=== PATIENT | male | born 1955 | race Caucasian/White ===

== ENCOUNTER 2021-04-28 14:39 | Outpatient (NON) | payer MEDICARE, SELFPAY ==
[2021-04-28 14:54] LABS: Hematocrit 45.8 % (40.0-54.0); Hemoglobin 15.1 g/dL (14.0-18.0); Mean Corpuscular Hemoglobin 29.6 pg (27.0-31.0); Mean Corpuscular Volume 89.8 fL (78.0-102.0); Mean Platelet Volume 10.2 fl (8.7-11.0); Platelet Count Result 175 K/mm3 (150-420); Red Cell Distribution Width 13.2 % (11.6-14.4); White Blood Count 4.8 K/mm3 (4.8-10.8)
[2021-04-28 15:50] LABS: Alanine Aminotransferase 49 U/L (16-63); Albumin Level 3.7 g/dL (3.4-5.0); Alkaline Phosphatase 60 U/L (46-116); Anion Gap 9 mmol/L (8-16); Aspartate Amino Transferase 19 U/L (15-37); Bilirubin,Total 0.3 mg/dL (0.00-1.00); Blood Urea Nitrogen 24 mg/dL (7-18); Calcium 8.6 mg/dL (8.5-10.1); Carbon Dioxide 30 mmol/L (21-32); Chloride 105 mmol/L (98-108); Cholesterol 138 mg/dL (0-200); Estimated Glomerular Filt Rate > 60; Glucose 102 mg/dL (70-99); HDL Direct 28 mg/dL (40-60); LDL Cholesterol Calculated 28 mg/dL (<130); Osmolality Calculated 302 mOsm/kg (285-295); Potassium 4.1 mmol/L (3.5-5.1); Sodium 144 mmol/L (136-145); Total Protein 6.5 g/dL (6.4-8.2); Triglycerides 409 mg/dL (0-150)
[2021-04-28 15:53] LABS: Prostate Specific Antigen < 0.1 ng/mL (< OR = 4.0)
[2021-04-28 16:24] LABS: LDL Cholesterol Direct 74 mg/dL (0-130)
== END 2021-04-28 14:40 | disposition home or self-care (01) ==
LOC: CHSLAB 14:43
PROVIDERS: Visit Provider Family Medicine
DX: N40.0 Benign prostatic hyperplasia without lower urinary tract symptoms (principal); Z12.5 Encounter for screening for malignant neoplasm of prostate; E78.5 Hyperlipidemia, unspecified; G40.909 Epilepsy, unspecified, not intractable, without status epilepticus
CPT/HCPCS: 36415; 80053; 80061; 83721; 84153; 85027; G0103

== ENCOUNTER 2022-03-11 09:34 | Outpatient (CLI) | payer MEDICARE, SELFPAY ==
[2022-03-11 09:50] LABS: Hematocrit 46.2 % (37.0-46.0); Hemoglobin 15.5 g/dL (12.4-15.3); Mean Corpuscular HGB Conc 33.5 g/dL (32.0-36.0); Mean Corpuscular Hemoglobin 29.8 pg (27.0-31.0); Mean Corpuscular Volume 88.8 fL (78.0-102.0); Mean Platelet Volume 9.9 fl (8.7-11.0); Platelet Count Result 182 K/mm3 (150-420); Red Cell Distribution Width 12.4 % (11.6-14.4); White Blood Count 3.8 K/mm3 (4.8-10.8)
[2022-03-11 10:17] LABS: Alanine Aminotransferase 30 U/L (16-63); Albumin Level 3.9 g/dL (3.4-5.0); Alkaline Phosphatase 54 U/L (46-116); Anion Gap 10 mmol/L (8-16); Aspartate Amino Transferase 18 U/L (15-37); Bilirubin,Total 0.7 mg/dL (0.00-1.00); Blood Urea Nitrogen 24 mg/dL (7-18); Calcium 8.7 mg/dL (8.5-10.1); Carbon Dioxide 26 mmol/L (21-32); Chloride 102 mmol/L (98-108); Cholesterol 132 mg/dL (0-200); Estimated Glomerular Filt Rate > 60; Glucose 102 mg/dL (70-99); HDL Direct 33 mg/dL (40-60); LDL Cholesterol Calculated 75 mg/dL (<130); Osmolality Calculated 290 mOsm/kg (285-295); Potassium 4.1 mmol/L (3.5-5.1); Sodium 138 mmol/L (136-145); Total Protein 7.1 g/dL (6.4-8.2); Triglycerides 122 mg/dL (0-150)
[2022-03-11 10:21] LABS: Prostate Specific Antigen < 0.1 ng/mL (< OR = 4.0)
== END 2022-03-11 09:35 | disposition home or self-care (01) ==
LOC: CHSLAB 09:37
PROVIDERS: PCP Family Medicine; Visit Provider Family Medicine
DX: K21.9 Gastro-esophageal reflux disease without esophagitis (principal); R35.1 Nocturia; Z85.46 Personal history of malignant neoplasm of prostate; E78.5 Hyperlipidemia, unspecified
CPT/HCPCS: 36415; 80053; 80061; 84153; 85027

== ENCOUNTER 2022-10-05 11:37 | Outpatient (CLI) | payer OTHER, SELFPAY ==
--- NOTE | ~2022-10-05 | XR_ITS ---
EXAMINATION: XR chest 2V DATE: 10/05/2022 15:14 INDICATION: Gastroesophageal reflux disease. Preop. TECHNIQUE: Frontal and lateral views of the chest were obtained. COMPARISON: Chest 2 views 10/03/2018 FINDINGS: The chest demonstrates clear lungs without pneumonia, pleural effusion, or pneumothorax. Th e heart size is normal. There are surgical clips near the gastroesophageal junction. 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 There are chronic compression fractures in mid thoracic spi ne. IMPRESSION: 1. No acute cardiopulmonary disease. Reviewed, dictated and finalized at location A.
--- NOTE | 2022-10-05 14:35 | ECG_ITS ---
Measurements Intervals [place] Rate: 68 P: -4 ME: 155 QRS: -15 QRSD: 107 T: 27 QT: 395 QTc: 420 Interpretive Statements SINUS RHYTHM BASELINE ARTIFACT LIMITS INTERPRETATION NONSPECIFIC ST T-WAVE ABNORMALITY ABNORMAL ECG COMPARED TO ECG 10/03/2018 10:23:44 NO SIGNIFICANT CHANGES Electronically Signed On 10-06-2022 13:39:38 CDT by Bar Fernando M.D.
[2022-10-05 15:58] LABS: Basophils Percent Auto 0.6 % (0.2-1.2); Eosinophils Absolute Auto 0.3 K/mm3 (0-0.3); Hematocrit 45.2 % (42.0-52.0); Hemoglobin 14.6 g/dL (14.0-18.0); Immature Granulocyte Absolute 0.01 K/mm3 (0.00-0.031); Immature Granulocyte Percent A 0.2 % (0-0.5); Lymphocytes Percent Auto 27.8 % (18.3-44.2); Mean Corpuscular HGB Conc 32.3 g/dl (32-36); Mean Corpuscular Hemoglobin 29.1 pg (26-34); Mean Corpuscular Volume 90.2 fl (80-100); Mean Platelet Volume 10.7 fl (7.4-10.4); Monocytes Absolute Auto 0.3 K/mm3 (0.1-0.6); Monocytes Percent Auto 6.4 % (2.6-8.5); Neutrophils Absolute Auto 2.8 K/mm3 (1.3-6.7); Platelet Count Result 171 k/mm3 (150-375); Red Blood Count 5.01 M/mm3 (4.6-6.20); Red Cell Distribution Width 13.2 % (11.5-14.5); White Blood Count 4.7 K/mm3 (4.5-10.0)
[2022-10-05 15:59] LABS: Appearance Urine Clear (Clear); Bilirubin Urine Negative (Negative); Blood Urine Negative (Negative); Color Urine Yellow (Yellow); Glucose Urine UA Negative (Negative); Ketones Urine Negative (Negative); Leukocyte Esterase Ur Negative LEU/UL (Negative); Nitrate Urine Negative (Negative); Protein Urine Negative (Negative); Specific Grav Ur 1.023 (1.001-1.035); pH Urine 6.5 (5.0-9.0)
[2022-10-05 16:17] LABS: Add Urine Microscopic? NO
[2022-10-05 16:20] LABS: Partial Thromboplastin Time 27.8 SECONDS (22.3-36.8)
[2022-10-05 16:24] LABS: Anion Gap 9 mmol/L (8-16); Blood Urea Nitrogen 23 mg/dL (9-20); Calcium 8.7 mg/dL (8.4-10.2); Carbon Dioxide 29 mmol/L (22-30); Chloride 104 mmol/L (98-107); Estimated Glomerular Filt Rate > 60; Glucose 83 mg/dL (65-110); Potassium 3.5 mmol/L (3.4-5.0); Sodium 142 mmol/L (137-145)
== END 2022-10-05 11:38 | disposition home or self-care (01) ==
PROVIDERS: PCP Family Medicine; Visit Provider Neurological Surgery
DX: M51.26 Other intervertebral disc displacement, lumbar region (principal); G95.9 Disease of spinal cord, unspecified; Z01.818 Encounter for other preprocedural examination
CPT/HCPCS: 36415; 71046; 80048; 81003; 85025; 85610; 85730; 86850; 86900; 86901; 93005

== ENCOUNTER 2022-11-09 02:22 | Day surgery (SDC) | payer OTHER, SELFPAY ==
--- NOTE | 2022-10-04 14:37 | PC.NURSE ---
Report to the Outpatient Waiting Room, entrance under the green pavilion located off [facility], at time __0600 on date _10/12/22 . Planned Procedure Time: ___30 . Time changes happen often and if your time is changed the preop area will call you the afternoon before. - You and your visitor will be asked to self-screen and do not enter if you have any COVID symptoms. - Only one visitor is requested with a max of two and NO children visitors are allowed at this time. - The patient visitor may be requested to leave or wait in car when not with patient due to distancing restrictions. - A mask is optional within the hospital at this time. Patients may have clear liquids (water, carbonated beverages, clear teas, apple juice) until 3 hours prior to surgery with a maximum of 20 ounces. - No food from midnight until time of surgery - Infants may have breast milk until 4 hours before surgery, infant formula 6 hours prior to surgery. - Children will be allowed to drink immediately following surgery. If applicable, please bring a bottle or sippy cup to assist with drinking. Juice, water, soda, and popsicles are readily available. For infants on formula, please bring formula the day of surgery. Pacifiers are allowed. Take the following medications with a SIP of water the morning of surgery: ____pregabalin DO NOT STOP ANY OF YOUR OTHER PRESCRIPTION MEDICATIONS PRIOR TO SURGERY ?EXCEPT THE FOLLOWING Medications to discontinue per physician ___ALL VITAMINS AND SUPPLEMENTS 3 DAYS PRE OP.LAST DOSE 10/08/[address] MCKEON Please no make-up, nail zimbabwean, hairspray, perfume, deodorant, or body powder the day of surgery. No jewelry (including any body piercings) or valuables the day of surgery, leave them at home. Please take a shower or bath the night before, or the morning of, surgery with an antibacterial soap. Wear comfortable, loose fitting clothing. Children are encouraged to wear pajamas. - Jewelry must be removed prior to entering the operating room. Rings and piercings that are not removed may be cut off. - The hospital will not accept responsibility for valuables. - Please leave all valuables, including medications, at home the day of surgery. If you are going home after surgery, a licensed hook up driver must drive you home. - NO public transportation without another adult if you receive anesthesia. - We recommend that an adult stay with you for 24 hours following discharge. - We also recommend that you do not drive, make important decision, drink alcoholic beverages, or take any drugs that were not prescribed by your health care provider for at least 24 hours after your discharge time. For Pediatric surgeries, we recommend two adults accompany the child home. Follow any additional instructions given to you from your surgeon. If you or anyone in your household have experienced Covid symptoms in the past week, please notify your surgeon or the nurse liaison at the phone number below for possible testing. Telephone instructions given to __PATIENT and asked if any additional questions and then verbalized understanding. Patient advised to call surgeon office or pre surgery nurse liaison [phone] if any additional questions.
[2022-10-04 14:49] VITALS: BMI 29.8
--- NOTE | 2022-11-02 08:43 | PC.NURSE ---
Addendum entered by Genet Alanis RN 11/02/22 08:53: PATIENT RESCHEDULED FOR INSURANCES REASONS. PT GIVEN NEW TIME/DATE, HE RELAYS UNDERSTANDING. NO CHANGE IN PMH. ALL MEDS AND ALLERGIES CONFIRMED. ALL PRE-OP INSTRUCTIONS REVIEWED, HE RELAYS UNDERSTANDING. Original Note: Report to the Outpatient Waiting Room, entrance under the green pavilion located off [facility], at time __8:30am on date ___11/09/22____. Planned Procedure Time: _10:30am . Time changes happen often and if your time is changed the preop area will call you the afternoon before. - You and your visitor will be asked to self-screen and do not enter if you have any COVID symptoms. - A mask is optional within the hospital at this time. Patients may have clear liquids (water, carbonated beverages, clear teas, apple juice) until 3 hours prior to surgery with a maximum of 20 ounces. - No food from midnight until time of surgery Take the following medications with a SIP of water the morning of surgery: ____PREGABALIN DO NOT STOP ANY OF YOUR OTHER PRESCRIPTION MEDICATIONS PRIOR TO SURGERY ?EXCEPT THE FOLLOWING Medications to discontinue per physician ___HOLD ALL VITAMINS/SUPPLEMENTS 3 DAYS PRE-OP PER ANESTHESIA- LAST DOSE 11/05/22. HOLD MELOXICAM PER DR MCKEON- PATIENT CHECKING WITH OFFICE. Please no make-up, nail bahraini, hairspray, perfume, deodorant, or body powder the day of surgery. No jewelry (including any body piercings) or valuables the day of surgery, leave them at home. Please take a shower or bath the night before, or the morning of, surgery with an antibacterial soap. Wear comfortable, loose fitting clothing. Children are encouraged to wear pajamas. - Jewelry must be removed prior to entering the operating room. Rings and piercings that are not removed may be cut off. - The hospital will not accept responsibility for valuables. - Please leave all valuables, including medications, at home the day of surgery. If you are going home after surgery, a licensed yard truck driver must drive you home. - NO public transportation without another adult if you receive anesthesia. - We recommend that an adult stay with you for 24 hours following discharge. - We also recommend that you do not drive, make important decision, drink alcoholic beverages, or take any drugs that were not prescribed by your health care provider for at least 24 hours after your discharge time. Follow any additional instructions given to you from your surgeon. If you or anyone in your household have experienced Covid symptoms in the past week, please notify your surgeon or the nurse liaison at the phone number below for possible testing. Telephone instructions given to ___PATIENT and asked if any additional questions and then verbalized understanding. Patient advised to call surgeon office or pre surgery nurse liaison [phone] if any additional questions.
--- NOTE | 2022-11-08 14:33 | WPDANESEPPF ---
Anes - Initial Pre Proc Eval Procedure: Operation Date: 11/09/22 10:30 Proposed Procedures p Left L4-5 Microdiscectomy - Brian Saleh MD Date/Time: 11/08/22 14:33 Surgeon: Brian Saleh MD Pre Op Diagnosis: left L4-5 herniated disc Patient Data Age: 67 Gender: M Height: 1.83 m Weight: 99.8 kg Allergies Allergy/AdvReac Type Severity Reaction Status Date / Time duloxetine [From Cymbalta] AdvReac Confusion Verified 11/09/22 09:18 Home Medications Medication Instructions Recorded Confirmed Type meloxicam 15 mg tablet 15 mg PO DAILY 08/16/19 11/02/22 History acetaminophen 500 mg tablet 500 mg PO Q6H PRN Pain 08/26/20 11/02/22 History (Tylenol Extra Strength) atorvastatin 40 mg tablet See Rx Instructions .Route 03/11/22 11/02/22 Rx .COMPLEX #90 tabs cyclobenzaprine 10 mg tablet 10 mg PO .HS PRN muscle spasm #30 03/11/22 11/02/22 Rx tabs omeprazole 10 mg capsule,delayed See Rx Instructions .Route 03/11/22 11/02/22 Rx release .COMPLEX #90 caps hyoscyamine sulfate 0.125 mg tablet See Rx Instructions .Route 08/18/22 11/02/22 Rx .COMPLEX #360 tabs pregabalin 50 mg capsule 50 mg PO BID 10/04/22 11/09/22 History turmeric 400 mg capsule 250 mg PO DAILY 10/04/22 11/02/22 History vitamin C 90 mg-zinc gluconate 15 1 miroslava PO DAILY 10/04/22 11/02/22 History mg-herbal complex no. 325 lozenges (Elderberry Zinc Vit C) ECG: Date of Service: 10/05/22 Procedure(s): CA 12 lead EKG Accession Number(s): [id number] cc: ~ ? Measurements Intervals? [place]? Rate: ? 68 ? P:? -4 [place]: ? 155? QRS:? -15 QRSD: ? 107? T:? 27 QT: ? 395? QTc:? 420? Interpretive Statements SINUS RHYTHM BASELINE ARTIFACT LIMITS INTERPRETATION NONSPECIFIC ST T-WAVE ABNORMALITY ABNORMAL ECG COMPARED TO ECG 10/03/2018 10:23:44 NO SIGNIFICANT CHANGES Electronically Signed On 10-06-2022 13:39:38 CDT by Bar Fernando M.D. Patient hx anesthesia problems: none Family hx anesthesia problems: none Results Review: All pre-operative results and documents have been reviewed as part of the pre-operative evaluation. [facility] Past Medical History Medical History (Updated 11/08/22 @ 14:34 by Ata Dubose MD) Chronic back pain greater than 3 months duration GERD (gastroesophageal reflux disease) History of prostate cancer Prostatectomy 10-13-18 Hyperlipidemia Lumbar disc herniation Lumbar myelopathy MDD (major depressive disorder) Overweight Paraplegia Seizure disorder Surgical History Surgical History History of back surgery 1976 History of neck surgery C6 & C7 in 1976 History of rotator cuff surgery Left shoulder Family History Family History Mother Hypertension Diabetes mellitus Lung cancer Social History Social History Smoking status: Never smoker Living arrangements: with family Additional living arrangements comments: . 2 adult sons. 4 granchildren. Additional occupation/education comments: Currently on [employer] Disability due to accident at work. Worked for [employer]. Spiritual care concerns: No Anes - Eval Final PreProcedure Day of Procedure 11/08/22 14:33 Patient weight: obese Heart: regular rate and rhythm Lungs: clear to auscultation and normal air movement Airway: Mallampati scale class II Neurological: alert and oriented Last oral intake: >/= 8 hours ASA classification: III Emergent: no Anesthetic plan: proceed Anesthesia type and monitoring: general ETT Results Review: All pre-operative results and documents
[2022-11-09] VITALS (8 sets, daily range): BP systolic 103–142; BP diastolic 63–95; PULSE 54–75; RESP 12–16; TEMP 36.1–36.3; O2SAT 97–100
--- NOTE | ~2022-11-09 | XR_ITS ---
EXAMINATION: XR fluoroscopy no charge DATE: 11/09/2022 11:15 CDT INDICATION: L4-5 MICRODISCECTOMY . TECHNIQUE: 2 fluoroscopic images of the lateral lumbar spine were obtained during L4-5 microdiscectom y performed by the surgeon. I was not present in the operating room. Fluoroscopy exposure time was 1. 5 seconds. Air Kerma 1.2492 mGy. DAP 0.0248 mGym2. COMPARISON: None FINDINGS: Instrument localization of the L4-5 disc space, followed by localization of the superior aspect of th e posterior L5 vertebral body cortex. Skin retractors overlie the posterior soft tissues. No unexpect ed radiopaque foreign body. IMPRESSION: Fluoroscopic documentation of L4-5 microdiscectomy. Please refer to the operative note for complete p rocedural details . Reviewed, dictated and finalized at location K. IMPRESSION: Fluoroscopic documentation of L4-5 microdiscectomy. Please refer to the operati ve note for complete procedural details .
[2022-11-09] MEDS: LACTATED RINGERS 1,000 ML 30 ML IV CONT ×2 (09:17→11:57)
--- NOTE | 2022-11-09 10:22 | PM.IMHP ---
H&P: HPI History of Present Illness Date/Time: 11/09/22 10:22 Chief Complaint: Back and left leg pain Narrative: Mr. So is a 67-year-old gentleman with back and left lower extremity discomfort related to foraminal stenosis on the left L3-4 related to a disc herniation and spondylosis who presents for decompression. He has not changed appreciably since we last saw him. He does not have specific muscle group weakness or dermatomal numbness. He is not having any bowel or bladder difficulty. Review of Systems Review of Systems: Patient denies shortness of breath, cough, fever, chills, nausea, vomiting, weight loss, weight gain, chest pain, dysuria. He has back and leg pain as above. His review of systems is otherwise negative on 12 systems except as noted elsewhere. [facility] Past Medical History Medical History Chronic back pain greater than 3 months duration GERD (gastroesophageal reflux disease) History of prostate cancer Prostatectomy 10-13-18 Hyperlipidemia Lumbar disc herniation Lumbar myelopathy MDD (major depressive disorder) Overweight Paraplegia Seizure disorder Surgical History Surgical History History of back surgery 1976 History of neck surgery C6 & C7 in 1976 History of rotator cuff surgery Left shoulder Family History Family History Mother Hypertension Diabetes mellitus Lung cancer Social History Social History Smoking status: Never smoker Living arrangements: with family Additional living arrangements comments: . 2 adult sons. 4 granchildren. Additional occupation/education comments: Currently on Long-Term Disability due to accident at work. Worked for [employer]. Spiritual care concerns: No Meds Home Medications and Allergies Home Medications Medication Instructions Recorded Confirmed Type meloxicam 15 mg tablet 15 mg PO DAILY 08/16/19 11/02/22 History acetaminophen 500 mg tablet 500 mg PO Q6H PRN Pain 08/26/20 11/02/22 History (Tylenol Extra Strength) atorvastatin 40 mg tablet See Rx Instructions .Route 03/11/22 11/02/22 Rx .COMPLEX #90 tabs cyclobenzaprine 10 mg tablet 10 mg PO .HS PRN muscle spasm #30 03/11/22 11/02/22 Rx tabs omeprazole 10 mg capsule,delayed See Rx Instructions .Route 03/11/22 11/02/22 Rx release .COMPLEX #90 caps hyoscyamine sulfate 0.125 mg tablet See Rx Instructions .Route 08/18/22 11/02/22 Rx .COMPLEX #360 tabs pregabalin 50 mg capsule 50 mg PO BID 10/04/22 11/09/22 History turmeric 400 mg capsule 250 mg PO DAILY 10/04/22 11/02/22 History vitamin C 90 mg-zinc gluconate 15 1 miroslava PO DAILY 10/04/22 11/02/22 History mg-herbal complex no. 325 lozenges (Elderberry Zinc Vit C) Allergies Allergy/AdvReac Type Severity Reaction Status Date / Time duloxetine [From Cymbalta] AdvReac Confusion Verified 11/09/22 09:18 Vital Signs Vital Signs - 24 hr 11/09/22 09:12 Temperature 97.4 F L Pulse Rate 75 Respiratory Rate 14 Blood Pressure 113/95 H Pulse Oximetry 97 Oxygen Delivery Room Air Exam Narrative: Strength is 5/5 in all muscle groups of the bilateral lower extremities. Sensation is intact to light touch throughout the lower extremities. Breathing is nonlabored Regular rate and rhythm Assessment and Plan Assessment and plan (1) Lumbar disc herniation: Code(s): M51.26 - Other intervertebral disc displacement, lumbar region Status: Acute Assessment and Plan: Mr. So is a 67-year-old gentleman with back and leg pain related to a foraminal disc herniation L3-4 who presents for left-sided L3-4 far lateral foraminotomy and microdiskectomy. I described to him again that operation, its risks, potential benefits, the operative and postoperative
--- NOTE | 2022-11-09 10:24 | WPDHPUPDATE1 ---
History and Physical Update Update Date/Time: 11/09/22 10:24 History and Physical has been reviewed, including an updated exam of the patient. There are NO changes in the patient's condition. Risks, benefits, and alternatives have been discussed and questions answered. Patient agrees to proceed with procedure.
--- NOTE | 2022-11-09 10:40 | P.HP_ITS ---
H&P: HPI History of Present Illness Date/Time: 11/09/22 10:40 Chief Complaint: this was an aborted document. [facility] Past Medical History Medical History Chronic back pain greater than 3 months duration GERD (gastroesophageal reflux disease) History of prostate cancer Prostatectomy 10-13-18 Hyperlipidemia Lumbar disc herniation Lumbar myelopathy MDD (major depressive disorder) Overweight Paraplegia Seizure disorder Surgical History Surgical History (Updated 12/24/22 @ 11:05 by Saundra Maldonado MA) History of back surgery 1976 History of neck surgery C6 & C7 in 1976 History of rotator cuff surgery Left shoulder Status post lumbar discectomy Family History Family History Mother Hypertension Diabetes mellitus Lung cancer Social History Social History (Updated 01/03/23 @ 11:13 by Saundra Maldonado MA) Social History: Wilder feels very confident filling out medical forms. Smoking status: Never smoker Lack of Transportation: No Lack of Food: Never True Current Housing: I Have Housing Concerned About Future Housing: No Difficulty Paying Gas/Electric Bills: No Difficulty Paying for Meds: No Currently Unemployed: No Education: Associate Degree Difficulty w/ Childcare or Family Care: No Living arrangements: with family Additional living arrangements comments: . 2 adult sons. 4 granchildren. 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 Worked for [employer]. Spiritual care concerns: No Meds Home Medications and Allergies Home Medications Medication Instructions Recorded Confirmed Type meloxicam 15 mg tablet 15 mg PO DAILY 08/16/19 11/02/22 History acetaminophen 500 mg tablet 500 mg PO Q6H PRN Pain 08/26/20 11/02/22 History (Tylenol Extra Strength) omeprazole 10 mg capsule,delayed See Rx Instructions .Route 03/11/22 11/02/22 Rx release .COMPLEX #90 caps hyoscyamine sulfate 0.125 mg tablet See Rx Instructions .Route 08/18/22 11/02/22 Rx .COMPLEX #360 tabs vitamin C 90 mg-zinc gluconate 15 1 miroslava PO DAILY 10/04/22 11/02/22 History mg-herbal complex no. 325 lozenges (Elderberry Zinc Vit C) atorvastatin 40 mg tablet See Rx Instructions .Route 02/28/23 Rx .COMPLEX #30 tabs atorvastatin 40 mg tablet See Rx Instructions .Route 03/01/23 03/01/23 Rx .COMPLEX #90 tabs semaglutide (weight loss) 0.25 0.25 mg (0.5 mL) subcut WEEKLY #2 03/01/23 03/01/23 Rx mg/0.5 mL subcutaneous pen mL injector (CindyKublaxghanshyam) tramadol 50 mg tablet 50 mg PO Q6H PRN 03/01/23 History Allergies Allergy/AdvReac Type Severity Reaction Status Date / Time duloxetine [From Cymbalta] AdvReac Confusion Verified 03/01/23 07:18 Vital Signs Vital Signs - 24 hr 11/09/22 09:12 Temperature 97.4 F L Pulse Rate 75 Respiratory Rate 14 Blood Pressure 113/95 H Pulse Oximetry 97 Oxygen Delivery Room Air
[2022-11-09] MEDS: ceFAZolin 2 GM/D5W 50 ML 2 GM/50 ML BAG IVPB (10:41)
--- NOTE | 2022-11-09 10:41 | WPDNEUROSGPN ---
Subjective Date/time seen: 11/09/22 10:41 Interval history: This note is being written to correct the history and physical. The operation is being performed at L4-5 and is an L4-5 microdiskectomy on the left. Objective Data Vital Signs Vital Signs: Vital Signs - 24 hr 11/09/22 09:12 Temperature 97.4 F L Pulse Rate 75 Respiratory Rate 14 Blood Pressure 113/95 H Pulse Oximetry 97 Oxygen Delivery Room Air Meds/Results Medications: Active Medications Generic Name Dose Route Start Last Admin Trade Name Freq PRN Reason Stop Dose Admin Fentanyl Citrate 25 mcg 11/08/22 14:33 Fentanyl Citrate Inj (*Crx) 100 Mcg/2 Ml Vial IV PUSH Q2M PRN Pain Lactated Ringer's 1,000 mls @ 30 mls/hr 11/08/22 14:35 Lr - Lactated Ringers Iv IV CONT .Q24H SAM Lactated Ringer's 1,000 mls @ 30 mls/hr 11/08/22 14:35 11/09/22 09:17 Lr - Lactated Ringers Iv IV CONT 30 mls/hr .Q24H SAM Administration Ondansetron HCl 4 mg 11/08/22 14:33 Ondansetron Inj 4 Mg/2 Ml Vial IV PUSH ONCE PRN Nausea Oxycodone HCl 5 mg 11/08/22 14:33 Oxycodone Hcl (*Crx) 5 Mg Tab Ir PO ONCE PRN Pain
[2022-11-09] MEDS: LIDO 1%/EPINEPHRINE 1:100,000 50 ML VIAL INFILTRATE (11:23)
--- NOTE | 2022-11-09 11:50 | W.PM.PROC2 ---
Procedure Note - Detailed Date of Procedure 11/09/22 Pre-op Diagnosis left L4-5 herniated disc Post-op Diagnosis Same Procedure Performed Left L4-5 microdiskectomy Surgeon Brian Saleh MD [employer] Imtiaz Anesthesia General Description of Procedure The patient was brought to the operating room in the supine position, was sedated, intubated placed under general anesthesia in routine fashion. He was then turned into the prone position on a Ebenezer frame. The area of operation on his back was examined, incision, prepped and draped in routine sterile fashion. Incision was marked over the L4-L5 spinous processes in the midline. This area was injected with 0.5% lidocaine with [id number] epinephrine. Intravenous antibiotics given prior to incision. Incision was made with a 10 blade scalpel down to the lumbodorsal fascia. A subperiosteal dissection of the muscle soft tissue away from spinous process and lamina at L4-5 on the left was performed with a subperiosteal elevator and Bovie cautery. A verifying x-rays obtained to verify the level of operation. At the L4-5 level Midas-Carl drill was used to perform a hemilaminectomy and medial facetectomy. Under microscopy the yellow ligament lifted and piecemeal using Kerrison punches. The thecal sac was retracted medially. The ligament was entered using an 11 blade scalpel. An Diamante curette and curved curette were used to push free and removed fragments of disc which were removed with a Frey rongeur. The nerve root was followed course foramen. A limited bony foraminotomy was performed using a Midas Carl drill, curved curette and Kerrison punch. These maneuvers were performed until the dental instrument could be placed in the lateral epidural space above and below the nerve root to confirm microdecompression. The wound was then copiously irrigated with bacitracin irrigation all bleeding stopped with bipolar and Bovie cautery the thrombin powder. The wound was then closed in layered fashion with 2-0 Vicryl interrupted sutures in the lumbodorsal fascia and Abe's layer. 3-0 Vicryl buried interrupted sutures were placed in the dermis and the skin was closed with a running 4-0 Monocryl subcuticular stitch and dressed with Dermabond. The patient was allowed to wake up in the operating room was taken to the recovery room in stable condition. There were no immediate complications of this operation. All counts were reported correct in the case. Blood loss was 25 cc. The patient is neurologically at his baseline postoperatively. CPT code: 71680 Estimated Blood Loss 25 IV Fluids 1,000 Complications None Condition Stable Disposition PACU [facility] Billing Surgery - Charge Forward: Surgery Billing
[2022-11-09] MEDS: oxyCODONE HCL (*CRX) 5 MG TAB IR PO (13:05)
== END 2022-11-09 13:53 | disposition home or self-care (01) ==
PROVIDERS: PCP Family Medicine; Visit Provider Neurological Surgery
PROC: (CPT 63030; principal; 2022-11-09 10:30)
DX: M51.26 Other intervertebral disc displacement, lumbar region (principal); E78.5 Hyperlipidemia, unspecified; F32.9 Major depressive disorder, single episode, unspecified; K21.9 Gastro-esophageal reflux disease without esophagitis; Z85.46 Personal history of malignant neoplasm of prostate; E66.9 Obesity, unspecified; Z68.29 Body mass index [BMI] 29.0-29.9, adult
CPT/HCPCS: 63030; 36415; 86850; 86900; 86901; 99199; A9270; J0690; J1100; J2405; J2704; J2710; J7120

== ENCOUNTER 2022-12-27 10:54 | Outpatient (CLI) | payer OTHER, MEDICARE, SELFPAY ==
--- NOTE | ~2022-12-27 | XR_ITS ---
EXAMINATION: XR lumbar spine 2-3V DATE: 12/27/2022 11:16 INDICATION: Low back pain TECHNIQUE: Anteroposterior and lateral views of the lumbar spine, and cone-down lateral view of the l umbosacral junction were obtained. COMPARISON: None. FINDINGS: There are 10 degrees of lumbar dextrocurvature. There are 2 mm retrolisthesis of L3 on L4. The vertebral body heights are maintained. There is moderate loss of intervertebral disc space height at L2-3 and L3-4. There is no fracture. Small degenerative osteophytes project from the anterior end plates of multiple vertebral bodies. There is severe facet joint osteoarthritis of the lower lumbar s pine. IMPRESSION: 1. Moderate lumbar spondylosis without acute findings. Reviewed, dictated and finalized at location []
== END 2022-12-27 10:55 | disposition home or self-care (01) ==
LOC: ANHIMG 11:01
PROVIDERS: PCP Family Medicine; Visit Provider Neurological Surgery
DX: Z98.890 Other specified postprocedural states (principal); M47.896 Other spondylosis, lumbar region
CPT/HCPCS: 72100

== ENCOUNTER 2023-03-01 08:39 | Outpatient (CLI) | payer MEDICARE, SELFPAY ==
[2023-03-01 09:06] LABS: Hemoglobin A1C 5.4 % (<5.7)
[2023-03-01 09:28] LABS: Cholesterol 236 mg/dL (0-200); HDL Direct 32 mg/dL (40-60); LDL Cholesterol Calculated 172 mg/dL (<130); Triglycerides 158 mg/dL (0-150)
== END 2023-03-01 08:40 | disposition home or self-care (01) ==
LOC: CHSLAB 08:41
PROVIDERS: PCP Family Medicine; Visit Provider Family Medicine
DX: E78.5 Hyperlipidemia, unspecified (principal); E11.9 Type 2 diabetes mellitus without complications
CPT/HCPCS: 36415; 80061; 83036

== ENCOUNTER 2024-01-26 10:28 | Outpatient (CLI) | payer MEDICARE, SELFPAY ==
[2024-01-26 10:40] LABS: Basophils Absolute Auto 0.03 K/mm3 (0.00-0.10); Basophils Percent Auto 0.7 % (0.0-1.0); Eosinophils Absolute Auto 0.18 K/mm3 (0.02-0.50); Eosinophils Percent Auto 4.2 % (1.0-6.0); Hematocrit 44.6 % (37.0-46.0); Hemoglobin 15.1 g/dL (12.4-15.3); Immature Granulocyte Absolute 0.01 K/mm3 (0.00-0.00); Immature Granulocyte Percent A 0.2 % (0.0-0.0); Lymphocytes Absolute Auto 1.39 K/mm3 (1.10-4.50); Lymphocytes Percent Auto 32.3 % (18.0-42.0); Mean Corpuscular HGB Conc 33.9 g/dL (32-36); Mean Corpuscular Hemoglobin 29.8 pg (27.0-31.0); Mean Corpuscular Volume 88.1 fL (78.0-102.0); Mean Platelet Volume 9.8 fl (8.7-11.0); Monocytes Absolute Auto 0.34 K/mm3 (0.10-0.90); Monocytes Percent Auto 7.9 % (2.0-11.0); Neutrophils Absolute Auto 2.35 K/mm3 (1.70-7.20); Neutrophils Percent Auto 54.7 % (50.0-70.0); Platelet Count Result 179 K/mm3 (150-420); Red Blood Count 5.06 M/mm3 (4.70-6.10); Red Cell Distribution Width 12.6 % (11.6-14.4); White Blood Count 4.3 K/mm3 (4.8-10.8)
[2024-01-26 12:35] LABS: Alanine Aminotransferase 35 U/L (16-63); Albumin Level 3.8 g/dL (3.4-5.0); Alkaline Phosphatase 56 U/L (46-116); Anion Gap 7 mmol/L (4-12); Aspartate Amino Transferase 19 U/L (15-37); Bilirubin,Total 0.7 mg/dL (0.00-1.00); Blood Urea Nitrogen 17 mg/dL (7-18); Calcium 8.9 mg/dL (8.5-10.1); Carbon Dioxide 28 mmol/L (21-32); Chloride 103 mmol/L (98-108); Estimated Glomerular Filt Rate > 60; Folic Acid 9.6 ng/mL (8.6->20); Glucose 93 mg/dL (70-99); Osmolality Calculated 287 mOsm/kg (285-295); Potassium 4.6 mmol/L (3.5-5.1); Sodium 138 mmol/L (136-145); Thyroid Stimulating Hormone Reflex 0.94 u/IU/mL (0.36-3.74); Total Protein 6.6 g/dL (6.4-8.2); Vitamin B12 366 pg/mL (193-986)
== END 2024-01-26 10:29 | disposition home or self-care (01) ==
LOC: CHSLAB 10:30
PROVIDERS: PCP Family Medicine; Visit Provider Family Medicine
DX: E53.8 Deficiency of other specified B group vitamins (principal); E03.9 Hypothyroidism, unspecified; R53.83 Other fatigue
CPT/HCPCS: 36415; 80053; 82607; 82746; 84443; 85025

== ENCOUNTER 2024-01-27 10:54 | Outpatient (CLI) | payer MEDICARE, SELFPAY ==
--- NOTE | 2024-02-01 21:41 | WPDPFTINT ---
PFT Procedure Performed PFT Procedure Performed Spirometry with Pre/Post Bronchodilator Plethysmography (Lung Vol) Diffusing Cap (DLCO) Flow Vol Loop PFT Interpretation DOS: 01/27/2020 for REQUESTING: Dr. Segundo Nye REASON FOR TESTING: dyspnea PULMONARY FUNCTION TESTS Spirometry: The pre-bronchodilator FEV1 is 2.80 L, 80%. The pre-bronchodilator FVC is 3.91 L, 87%. The FEV1/FVC ratio is 72%. After bronchodilator, the FEV1 is 2.94 L, 84%, +5%. The FVC is 3.85 L, 86%, -2%. The FEV1/FVC ratio is 77%. Lung volumes: The total lung capacity is 5.62 L, 80%. The residual volume is 1.71 L, 65%. The RV/TLC is 30%. Diffusion: DLCO is 24.8, 97%. The DLCO/VA is 4.43, 121%. Flow volume loop: The flow volume loop is normal. IMPRESSION: Normal spirometry without response to bronchodilator, normal lung volumes and normal diffusion. Lack of response to bronchodilator should not preclude use if clinically indicated. Tara Steele MD
== END 2024-01-27 10:55 | disposition home or self-care (01) ==
LOC: CHSCARD 10:55
PROVIDERS: PCP Family Medicine; Visit Provider Family Medicine
DX: R06.00 Dyspnea, unspecified (principal); R94.2 Abnormal results of pulmonary function studies
CPT/HCPCS: 94060; 94726; 94729

== ENCOUNTER 2024-02-21 11:23 | Outpatient (NON) | payer MEDICARE, SELFPAY | END 2024-02-21 11:24 | disposition home or self-care (01) | LOC: CHSLAB 11:24 | PROVIDERS: Visit Provider Family Medicine | DX: R35.0 Frequency of micturition (principal) | CPT/HCPCS: 87077; 87086; 87088; 87186 ==

== ENCOUNTER 2024-03-15 14:45 | Outpatient (CLI) | payer MEDICARE, SELFPAY ==
--- NOTE | 2024-03-15 14:49 | ECHO_ITS ---
Patient Info Name: Wilder So Age: 68 years : 1955 Gender: Male Ht: 72 in Wt: 220 lbs BSA: 2.27 m2 HR: 60 bpm BP: 145 / 78 mmHg Heart Rhythm: Sinus Rhythm Exam Date: 03/15/2024 2:52 PM Exam Location: Echo Lab Patient Status: Outpatient Admit Date: 03/15/2024 Staff Ordering Physician: Segundo Nye DO [employer] Agent: Sujatha Winslow RDCS Attending Provider: Segundo Nye DO Referring Physician: Parris ADEN; Exam Type: CA echo doppler color flow Study Info Indications - heart failure, unsp Complete two-dimensional, color flow and Doppler transthoracic echocardiogram is performed. Summary 1. Complete two-dimensional, color flow and Doppler transthoracic echocardiogram is performed. 2. Left ventricular chamber dimension is normal. 3. Left ventricular systolic function is normal, estimated at 60-65%. 4. The left ventricular diastolic function is grade I diastolic dysfunction. 5. E/e' 9 is minimally elevated. 6. There is trace tricuspid valve regurgitation. 7. No pulmonary hypertension, estimated pulmonary arterial systolic pressure is 30 mmHg. Left Ventricle E/e' 9 is minimally elevated. Left ventricular chamber dimension is normal. Left ventricular systolic function is normal, estimated at 60-65%. The left ventricular diastolic function is grade I diastolic dysfunction. Right Ventricle Right ventricular systolic function is normal and with normal TAPSE 2.9 cm. Right ventricular chamber dimension is normal. Left Atria Left atrial chamber dimension is normal. Right Atria Right atrial chamber dimension is normal. Aortic Valve The aortic valve is trileaflet. There is no aortic valve stenosis. There is no aortic valve regurgitation. Pulmonic Valve There is no pulmonic regurgitation. Mitral Valve There is no mitral valve stenosis. There is no mitral valve regurgitation. Tricuspid Valve There is trace tricuspid valve regurgitation. No pulmonary hypertension, estimated pulmonary arterial systolic pressure is 30 mmHg. Pericardium/Pleural There is no pericardial effusion. Inferior Vena Cava Normal inferior vena cava with >50% collapse upon inspiration consistent with normal right atrial pressure, 5 mmHg. Aorta The aortic root size at the sinus of Valsalva is normal. Left Ventricular Outflow Tract Name Value Normal LVOT 2D LVOT Diameter 1.8 cm LVOT Doppler LVOT Peak Velocity 82 cm/s LVOT Peak Gradient 3 mmHg LVOT Mean Gradient 2 mmHg LVOT VTI 19 cm LVOT VTI/AV VTI Ratio 0.6 LVOT Stroke Volume 48 ml Pulmonic Valve Name Value Normal PV Doppler PV Peak Velocity 131 cm/s PV Peak Gradient 7 mmHg Mitral Valve Name
== END 2024-03-15 14:46 | disposition home or self-care (01) ==
PROVIDERS: PCP Family Medicine; Visit Provider Family Medicine
DX: I50.9 Heart failure, unspecified (principal)
CPT/HCPCS: 93306

== ENCOUNTER 2025-02-26 10:41 | Outpatient (CLI) | payer MEDICARE, SELFPAY ==
[2025-02-26 11:02] LABS: Hematocrit 45.5 % (37.0-46.0); Hemoglobin 15.1 g/dL (12.4-15.3); Immature Granulocyte Percent A 0.3 % (0.0-0.0); Lymphocytes Absolute Auto 1.21 K/mm3 (1.10-4.50); Mean Corpuscular HGB Conc 33.2 g/dL (32-36); Mean Corpuscular Hemoglobin 29.3 pg (27.0-31.0); Mean Corpuscular Volume 88.3 fL (78.0-102.0); Nucleated Red Blood Cells Absolute Auto 0.00 K/mm3 (0.00-0.00); Nucleated Red Blood Cells Perc 0.0 % (0-0.0); Platelet Count Result 162 K/mm3 (150-420); Red Blood Count 5.15 M/mm3 (4.70-6.10); White Blood Count 4.0 K/mm3 (4.8-10.8)
[2025-02-26 12:30] LABS: Alanine Aminotransferase 25 U/L (6-50); Albumin Level 4.2 g/dL (3.5-5.1); Alkaline Phosphatase 42 U/L (38-126); Anion Gap 8 mmol/L (4-12); Aspartate Amino Transferase 28 U/L (17-59); Bilirubin,Total 0.8 mg/dL (0.2-1.3); Blood Urea Nitrogen 16 mg/dL (9-20); Calcium 9.5 mg/dL (8.4-10.2); Carbon Dioxide 26 mmol/L (22-30); Chloride 104 mmol/L (98-107); Cholesterol 206 mg/dL (0-200); Estimated Glomerular Filt Rate > 60; Glucose 105 mg/dL (65-110); HDL Direct 33 mg/dL; Osmolality Calculated 287 mOsm/kg (285-295); Potassium 4.4 mmol/L (3.4-5.0); Sodium 138 mmol/L (137-145); Total Protein 6.6 g/dL (6.3-8.2); Triglycerides 202 mg/dL (<150)
[2025-02-26 13:03] LABS: Thyroid Stimulating Hormone Reflex 1.250 uIU/mL (0.465-4.68)
[2025-02-26 13:37] LABS: Vitamin B12 301.0 pg/mL (239-931)
== END 2025-02-26 10:42 | disposition home or self-care (01) ==
LOC: CHSLAB 10:43
PROVIDERS: PCP Family Medicine; Visit Provider Family Medicine
DX: E53.8 Deficiency of other specified B group vitamins (principal); E03.9 Hypothyroidism, unspecified; R53.83 Other fatigue; I50.30 Unspecified diastolic (congestive) heart failure; R06.00 Dyspnea, unspecified; E78.5 Hyperlipidemia, unspecified; Z79.899 Other long term (current) drug therapy
CPT/HCPCS: 36415; 80053; 80061; 82306; 82607; 82746; 84443; 85025